=== PATIENT | female | born 1965 | race Caucasian/White ===

== ENCOUNTER → 2016-10-17 | Outpatient (CLI) | payer OTHER ==
--- NOTE | 2016-10-17 21:54 | MR ---
EXAMINATION TYPE: MR brain wo con DATE OF EXAM: 10/17/2016 COMPARISON: 01/20/2010 HISTORY: Edis weakness/numbness, seizures T1-weighted sagittal, T2, FLAIR, and diffusion axial, and T2 coronal coronal views of the brain are s ubmitted. There is no evidence of acute ischemia. The ventricles, basal cisterns, and sulci overlying the conv exities are consistent with the patient's age. There is no mass effect. Craniocervical junction maintained. Sella turcica has a normal appearance. No cerebellopontine angle mass. 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 Orally clinically for confirmation. Changes of chronic mild mastoiditis and sinusitis. WHITE MATTER: There are 4 lesions scattered throughout the white matter bilaterally which are stable in appearance. All measure less than 5 mm. No lesions perpendicular to the ventricular system. No callosal lesions. IMPRESSION: 1. No acute intracranial process. Minimal nonspecific white matter changes are stable. If symptoms pe rsist consider contrast-enhanced MRI. 2. 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 3. Mild bilateral mastoiditis and changes of chronic sinusitis.
== END | disposition home or self-care (01) ==
LOC: RADMRIMAIN 19:56
PROVIDERS: ATTEND Psychiatry & Neurology Pain Medicine
DX: H70.93 Unspecified mastoiditis, bilateral (principal); R56.9 Unspecified convulsions
CPT/HCPCS: 70551

== ENCOUNTER 2016-12-17 22:14 | Emergency (ER) | payer OTHER ==
[2016-12-17 22:32] VITALS: RESP 18
--- NOTE | 2016-12-17 22:41 | ED ---
General Adult HPI - General Chief complaint: Dental/Oral Stated complaint: jaw pain Time Seen by Provider: 12/17/16 22:33 Source: patient, RN notes reviewed Mode of arrival: ambulatory Limitations: no limitations - History of Present Illness Initial comments: 50-year-old female presents to the emergency room chief complaint of right- sided jaw pain. Patient has history of a jaw fracture 20 years ago. Patient states that she felt her jaw pop a few weeks ago and since she's had pain to it. She is concerned that she may have reinjured. Patient states her dentures have not been fitting as well as well. Patient denies any fever chills. Patient states she is able to open and close mouth. She denies any pain into the neck. Patient was concerned due to her discomfort so she thought that she should be seen.Patient denies any recent fever, chills, shortness of breath, chest pain, back pain, abdominal pain, nausea vomiting, numbness or tingling, dysuria or hematuria, constipation or diarrhea, headaches or visual changes, or any other current symptoms. - Related Data Previous Rx's Medication Instructions Recorded Hydrocodone/Acetaminophen [Victor 1 each PO Q6HR PRN #10 tab 12/17/16 5-325] Allergies Allergy/AdvReac Type Severity Reaction Status Date / Time sulfamethoxazole Allergy Unknown Verified 04/04/15 10:56 [From ] trimethoprim [From ] Allergy Unknown Verified 04/04/15 10:56 Review of Systems ROS Statement: Those systems with pertinent positive or pertinent negative responses have been documented in the HPI. ROS Other: All systems not noted in ROS Statement are negative. Past Medical History Past Medical History: Fibromyalgia, GERD/Reflux, GI Bleed Additional Past Medical History / Comment(s): deg disc disease, gastric ulcers History of Any Multi-Drug Resistant Organisms: None Reported Past Surgical History: Breast Surgery, Cholecystectomy, Hysterectomy Additional Past Surgical History / Comment(s): "gastric ulcer ruptured" Past Psychological History: Anxiety, Depression Smoking Status: Current every day smoker Past Alcohol Use History: None Reported Past Drug Use History: Marijuana General Exam Limitations: no limitations General appearance: alert, in no apparent distress Head exam: Present: atraumatic, normocephalic, normal inspection Eye exam: Present: normal appearance, PERRL, EOMI. Absent: scleral icterus, conjunctival injection, periorbital swelling ENT exam: Present: normal exam, normal oropharynx (no top teeth, no abscess, no tenderness), mucous membranes moist Respiratory exam: Present: normal lung sounds bilaterally. Absent: respiratory distress, wheezes, rales, rhonchi, stridor Cardiovascular Exam: Present: regular rate, normal rhythm, normal heart sounds. Absent: systolic murmur, diastolic murmur, rubs, gallop, clicks Neurological exam: Present: alert, oriented X3 Psychiatric exam: Present: normal affect, normal mood Skin exam: Present: warm, dry, intact, normal color. Absent: rash Course Vital Signs 12/17/16 22:29 Temperature 97.0 F L Pulse Rate 77 Respiratory 18 Rate Blood Pressure 122/75 O2 Sat by Pulse 97 Oximetry Medical Decision Making - Medical Decision Making 51-year-old female presents emergency Department chief complaint right-sided jaw pain. This time patient's x-rays reviewed and does not show any acute new fracture there is suspicion for subluxation patient does have full range of motion of the jaw at this time. We discussion stop the neurosurgeon for didn't show imaging on the jaw.. This time we did give her follow-up to oral surgery. We discussed return parameters all the questions. She stated that she understood and she is in agreement with this plan. At this time she'll be discharged home. - Radiology Data Radiology results: report reviewed, image reviewed Disposition Clinical Impression: Chronic jaw pain Disposition: HOME SELF-CARE Condition: Stable Instructions: Jaw Fracture in Adults (ED) Additional Instructions: Please use medication as discussed. Please follow up with family doctor if symptoms have not improved over the next two days. Please return to the emergency room if your symptoms increase or worsen or for any other concerns. Prescriptions: Hydrocodone/Acetaminophen [Victor 5-325] 1 each PO Q6HR PRN #10 tab PRN Reason: Pain Referrals: Radha Darden MD [Primary Care Provider] - 1-2 days Eliseo Galeana DDS [STAFF PHYSICIAN] - 1-2 days Time of Disposition: 23:49
--- NOTE | 2016-12-17 23:44 | XR ---
EXAM: XR Mandible Complete, 4 or More Views CLINICAL HISTORY: RT side jaw pain x2 months, worse today. Hx of old jaw fracture in 1996. TECHNIQUE: Frontal, oblique and lateral views of the mandible. COMPARISON: No relevant prior studies available. FINDINGS: Dental: No acute findings. Bones/joints: The right TMJ looks subluxed on the Ruth Ann view, limited evaluation, may be due to positioning or patient moving. Limited evaluation of the lateral views due to overlap. Soft tissues: Unremarkable. IMPRESSION: The right TMJ looks subluxed on the Ruth Ann view, limited evaluation, may be due to positioning or patient moving. Limited evaluation of the lateral views due to overlap. Consider CT or MRI, MRI most sensitive.
[2016-12-18 00:06] VITALS: BP 120/72; PULSE 75; TEMP 98
== END 2016-12-18 00:05 | disposition home or self-care (01) ==
LOC: EC 22:14
DX: R68.84 Jaw pain (principal); G89.29 Other chronic pain; F17.200 Nicotine dependence, unspecified, uncomplicated; Z88.1 Allergy status to other antibiotic agents; Z97.2 Presence of dental prosthetic device (complete) (partial)
CPT/HCPCS: 70110; 99283

== ENCOUNTER → 2018-01-06 | Outpatient (CLI) | payer OTHER ==
--- NOTE | 2018-01-08 10:09 | MM ---
Reason for exam: screening (asymptomatic). Last mammogram was performed 1 year and 11 months ago. History: Patient is postmenopausal and history of endometrial cancer. Retro-pectoral silicone gel implants in both breasts, 1988. Silicone gel implant in the left breast. Silicone gel implant in the right breast. Physical Findings: A clinical breast exam by your physician is recommended on an annual basis and results should be correlated with mammographic findings. MG 3D Screen Mammo Imp/Cad Bilateral CC, MLO, and ID view(s) were taken. Prior study comparison: January 31, 2016, bilateral MG 3d screen mammo imp/cad. There are scattered fibroglandular densities. There is chronic nodularity in the right breast. Bilateral retropectoral silicone implants. New nodularity approximately 10 o'clock left breast. ASSESSMENT: Incomplete: need additional imaging evaluation, BI-RAD 0 RECOMMENDATION: Special view mammogram and ultrasound of the left breast. [facility] will attempt to contact patient to return for supplemental views and ultrasound.
== END | disposition home or self-care (01) ==
LOC: RADMAMWWP 15:12
PROVIDERS: ATTEND Family Medicine
DX: Z12.31 Encounter for screening mammogram for malignant neoplasm of breast (principal)
CPT/HCPCS: 77063; 77067

== ENCOUNTER → 2018-01-21 | Outpatient (CLI) | payer OTHER ==
--- NOTE | 2018-01-22 13:14 | MM ---
Reason for exam: additional evaluation requested from abnormal screening. Last mammogram was performed less than 1 month ago. History: Patient is postmenopausal and history of endometrial cancer. Retro-pectoral silicone gel implants in both breasts, 1988. Silicone gel implant in the left breast. Silicone gel implant in the right breast. Physical Findings: Nurse did not find any significant physical abnormalities on exam. MG 3D Work Up W/Cad LT CC and MLO view(s) were taken of the left breast. Prior study comparison: January 06, 2018, bilateral MG 3d screen mammo imp/cad. January 31, 2016, bilateral MG 3d screen mammo imp/cad. There are scattered fibroglandular densities. Finding: There is a 0.6cm high density, irregular mass in the 12 o'clock position of the left breast. These results were verbally communicated with the patient and result sheet given to the patient on 01/21/18. ASSESSMENT: Suspicious, BI-RAD 4 RECOMMENDATION: Surgical consultation and stereotactic core biopsy of the left breast. Called Dr. Nixon with mammographic findings and has scheduled an appointment for the patient for 02/14/18 at 1:[address] Huff. PRELIMINARY REPORT CALLED AND FAXED TO DR. HUFF ON 01/22/18.
--- NOTE | 2018-01-22 13:15 | USB ---
Reason for exam: additional evaluation requested from abnormal screening. History: Patient is postmenopausal and history of endometrial cancer. Retro-pectoral silicone gel implants in both breasts, 1988. Silicone gel implant in the left breast. Silicone gel implant in the right breast. US Breast Workup Limited LT Left limited breast ultrasound including focal area of concern, retroareolar and axilla demonstrates a 2.7 x 1.7 x 2.7cm hypoechoic lesion at 10 o'clock. These results were verbally communicated with the patient and result sheet given to the patient on 01/21/18. ASSESSMENT: Incomplete: need additional imaging evaluation, BI-RAD 0 RECOMMENDATION: Special view mammogram of the left breast.
== END | disposition home or self-care (01) ==
LOC: RADMAMWWP 15:02
PROVIDERS: ATTEND Family Medicine
DX: R92.8 Other abnormal and inconclusive findings on diagnostic imaging of breast (principal); N63.20 Unspecified lump in the left breast, unspecified quadrant
CPT/HCPCS: 77065; 76642; G0279; 77061

== ENCOUNTER → 2018-02-14 | Outpatient (CLI) | payer OTHER ==
[2018-02-14 13:07] VITALS: BP 128/68; PULSE 93; RESP 18; TEMP 98.3; BMI 25.7
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
== END | disposition home or self-care (01) ==
LOC: WWCWWP 12:51
PROVIDERS: ATTEND Surgery
DX: Z53.9 Procedure and treatment not carried out, unspecified reason (principal)

== ENCOUNTER → 2018-03-13 | Day surgery (SDC) | payer OTHER ==
[2018-03-13 07:30] VITALS: RESP 16; TEMP 98.3; BMI 25.7
--- NOTE | 2018-03-13 08:30 | P.PN ---
Progress Note - Text Progress Note Date: 03/13/18 The patient was scheduled for a left breast stereotactic core biopsy. Upon trying to localize the lesion of concern we were unable to do so. The radiographs were reviewed with radiology who felt that this initial area of concern was stable and non-worrisome, it may be a summation density therefore, the procedure should be canceled and she should have a repeat left breast mammogram in 6 months time. She will have a repeat physician visit at that time as well. This was relayed to the patient. The procedure was canceled. And the patient is recommended to undergo a repeat left breast mammogram and physician exam in 6 months time. CC: Dr. Nixon ([place])
[2018-03-13 08:40] VITALS: BP 122/88; PULSE 62
--- NOTE | 2018-03-13 16:09 | MM ---
EXAMINATION TYPE: MG discontinued stereo core LT DATE OF EXAM: 03/13/2018 COMPARISON: Prior mammogram 01/21/2018, 01/06/2018 CLINICAL HISTORY: Abnormal mammogram The lesion seen on patient's mammogram from 01/21/2018 could not be localized under stereotactic unit. Exam is aborted. No stereotactic performed this time. Follow-up mammogram recommended in 6 months.
== END ==
LOC: RADMAMWWP 06:51
PROVIDERS: ATTEND Surgery
DX: R92.8 Other abnormal and inconclusive findings on diagnostic imaging of breast (principal); Z53.8 Procedure and treatment not carried out for other reasons; Z88.8 Allergy status to other drugs, medicaments and biological substances

== ENCOUNTER → 2018-09-10 | Outpatient (CLI) | payer OTHER ==
--- NOTE | 2018-09-10 10:10 | MM ---
Reason for exam: follow-up at short interval from prior study. Last mammogram was performed 8 months ago. History: Patient is postmenopausal and history of endometrial cancer. MG discontinued stereo core LT of the left breast, March 13, 2018. Retro-pectoral silicone gel implants in both breasts, 1988. Silicone gel implant in the left breast. Silicone gel implant in the right breast. Physical Findings: Nurse did not find any significant physical abnormalities on exam. MG 3D Diag Mammo Imp W/Cad LT CC, MLO, and ID view(s) were taken of the left breast. Prior study comparison: January 21, 2018, left breast MG 3d work up w/cad LT. January 06, 2018, bilateral MG 3d screen mammo imp/cad. The breast tissue is heterogeneously dense. This may lower the sensitivity of mammography. Implant intact. Nodule is less conspicuous. These results were verbally communicated with the patient and result sheet given to the patient on 09/10/18. ASSESSMENT: Probably benign, BI-RAD 3 RECOMMENDATION: Follow-up diagnostic mammogram of both breasts in 6 months. Back on schedule for December 2018.
== END | disposition home or self-care (01) ==
LOC: RADMAMWWP 09:11
PROVIDERS: ATTEND Surgery
DX: R92.8 Other abnormal and inconclusive findings on diagnostic imaging of breast (principal)
CPT/HCPCS: 77065; G0279; 77061

== ENCOUNTER 2019-05-08 12:30 | Emergency (ER) | payer OTHER ==
[2019-05-08 13:01] VITALS: RESP 18; TEMP 98.8
--- NOTE | 2019-05-08 13:45 | ED ---
Abdominal Pain HPI - General Chief Complaint: Abdominal Pain Stated Complaint: Poss appendicitis Time Seen by Provider: 05/08/19 13:43 Source: patient Mode of arrival: ambulatory Limitations: no limitations - History of Present Illness Initial Comments: 54yo female presenting today for chief complaint of one month of right lower quadrant pain 3 days of diarrhea. Patient states she has had diarrhea for the past 2 days she states she's been dealing with right lower quadrant abdominal pain on and off for the past month. Patient states which her primary care provider for evaluation where she had labs obtained outpatient. She states with her to review the labs today and was told to come to emergency department for CT the abdomen and pelvis to rule out appendicitis. Patient denies any pelvic pain and vaginal discharge or vaginal bleeding. Patient denies any upper abdominal pain chest pain or shortness of breath. Patient admits to some nausea. Denies vomiting. Patient denies fever chills or flulike symptoms remaining review of systems negative upon arrival patient appears well no signs acute distress resting comfortably upon entering the room for history taking - Related Data Home Medications Medication Instructions Recorded Confirmed ARIPiprazole [Abilify] 20 mg PO DAILY 01/30/18 03/13/18 Dextroamphetamine/Amphetamine 1 tab PO BID 01/30/18 03/13/18 [Adderall] Escitalopram [Lexapro] 30 tab PO DAILY 01/30/18 03/13/18 Oxybutynin Chloride 5 mg PO BID 03/05/18 03/13/18 Varenicline [Chantix Starter Pack] 0.5 mg PO DAILY 03/13/18 03/13/18 Allergies Allergy/AdvReac Type Severity Reaction Status Date / Time sulfamethoxazole Allergy Unknown Verified 05/08/19 13:02 [From ] trimethoprim [From ] Allergy Unknown Verified 05/08/19 13:02 Review of Systems ROS Statement: Those systems with pertinent positive or pertinent negative responses have been documented in the HPI. ROS Other: All systems not noted in ROS Statement are negative. Past Medical History Past Medical History: Cancer, Fibromyalgia, GERD/Reflux, GI Bleed Additional Past Medical History / Comment(s): cervical cancer 1990. degene rative disc disease. gastric ulcers History of Any Multi-Drug Resistant Organisms: None Reported Past Surgical History: Breast Surgery, Cholecystectomy, Hysterectomy Additional Past Surgical History / Comment(s): breast implants-1988. gastric surgery due to rupture Past Anesthesia/Blood Transfusion Reactions: No Reported Reaction Past Psychological History: Anxiety, Bipolar, Depression Smoking Status: Former smoker Past Alcohol Use History: Occasional Past Drug Use History: Marijuana - Past Family History Mother Family Medical History: Cancer Father Family Medical History: Cancer General Exam - General Exam Comments Initial Comments: General: The patient is awake and alert, in no distress, and does not appear acutely ill. Eye: +3 mm pupils are equal, round and reactive to light, extra-ocular movements are intact. No nystagmus. There is normal conjunctiva bilaterally. No signs of icterus. Ears, nose, mouth and throat: There are moist mucous membranes and no oral lesions. Neck: The neck is supple, there is no tenderness or JVD. Cardiovascular: There is a regular rate and rhythm. No murmur, rub or gallop is appreciated. Respiratory: Lungs are clear to auscultation, respirations are non-labored, breath sounds are equal. No wheezes, stridor, rales, or rhonchi. Gastrointestinal: Soft, non-distended, abdomen tender to palpation of the right lower quadrant but is without masses or organomegaly noted. There is no rebound or guarding present. Musculoskeletal: Normal ROM, no tenderness. Strength 5/5. Sensation intact. Radial pulses equal bilaterally 2+. Neurological: A&O x 3. CN II-XII intact grossly, There are no obvious motor or sensory deficits. Coordination appears grossly intact. Speech is normal. Skin: Skin is warm and dry and no rashes or lesions are noted. Psychiatric: Cooperative, appropriate mood & affect, normal judgment. Limitations: no limitations Course Vital Signs 05/08/19 05/08/19 12:59 16:31 Temperature 98.8 F 98.8 F Pulse Rate 93 88 Respiratory 18 18 Rate Blood Pressure 151/75 120/80 O2 Sat by Pulse 98 98 Oximetry Medical Decision Making - Medical Decision Making 54-year-old female presenting today for chief complaint of sent by primary care provider to rule out appendicitis patient has had right lower quadrant pain on and off for the past month diarrhea [address] of the abdomen and pelvis reveals findings consistent with enterocolitis. This clinically correlates the patient's history of diarrhea. Patient does not appear in acute distress she is resting comfortably. I discussed labs and findings as well a PE with my attending who is agreeable to discharge with outpatient PCP f/u. Patient is agreeable, states symptoms are controlled patient discharged appearing well. - Lab Data Result diagrams: 05/08/19 13:50 05/08/19 13:50 Lab Results 05/08/19 05/08/19 05/08/19 Range/Units 13:50 13:50 13:50 WBC 13.2 H (3.8-10.6) k/uL RBC 4.46 (3.80-5.40) m/uL Hgb 13.0 (11.4-16.0) gm/dL Hct 40.4 (34.0-46.0) % MCV 90.6 (80.0-100.0) fL MCH 29.1 (25.0-35.0) pg MCHC 32.1 (31.0-37.0) g/dL RDW 13.6 (11.5-15.5) % Plt Count 474 H (150-450) k/uL Neutrophils % 59 % Lymphocytes % 30 % Monocytes % 5 % Eosinophils % 1 % Basophils % 2 % Neutrophils # 7.9 H (1.3-7.7) k/uL Lymphocytes # 4.0 (1.0-4.8) k/uL Monocytes # 0.7 (0-1.0) k/uL Eosinophils # 0.2 (0-0.7) k/uL Basophils # 0.2 (0-0.2) k/uL Sodium 141 (137-145) mmol/L Potassium 3.5 (3.5-5.1) mmol/L Chloride 104 (98-107) mmol/L Carbon Dioxide 26 (22-30) mmol/L Anion Gap 11 mmol/L BUN 14 (7-17) mg/dL Creatinine 0.73 (0.52-1.04) mg/dL Est GFR (CKD-EPI)AfAm >90 (>60 ml/min/1.73 sqM) Est GFR (CKD-EPI)NonAf >90 (>60 ml/min/1.73 sqM) Glucose 101 H (74-99) mg/dL Plasma Lactic Acid Luther 1.6 (0.7-2.0) mmol/L Calcium 9.6 (8.4-10.2) mg/dL Total Bilirubin 0.3 (0.2-1.3) mg/dL AST 21 (14-36) U/L ALT 26 (4-34) U/L Alkaline Phosphatase 66 (38-126) U/L Total Protein 7.3 (6.3-8.2) g/dL Albumin 4.6 (3.5-5.0) g/dL Amylase 42 (30-110) U/L Lipase 134 (23-300) U/L Urine Color Urine Appearance (Clear) Urine pH (5.0-8.0) Ur Specific [place] (1.001-1.035) Urine Protein (Negative) Urine Glucose (UA) (Negative) Urine Ketones (Negative) Urine Blood (Negative) Urine Nitrite (Negative) Urine Bilirubin (Negative) Urine Urobilinogen (<2.0) mg/dL Ur Leukocyte Esterase (Negative) Urine RBC (0-5) /hpf Urine WBC (0-5) /hpf Ur Squamous Epith Cells (0-4) /hpf Urine Mucus (None) /hpf 05/08/19 Range/Units 13:50 WBC (3.8-10.6) k/uL RBC (3.80-5.40) m/uL Hgb (11.4-16.0) gm/dL Hct (34.0-46.0) % MCV (80.0-100.0) fL MCH (25.0-35.0) pg MCHC (31.0-37.0) g/dL RDW (11.5-15.5) % Plt Count (150-450) k/uL Neutrophils % % Lymphocytes % % Monocytes % % Eosinophils % % Basophils % % Neutrophils # (1.3-7.7) k/uL Lymphocytes # (1.0-4.8) k/uL Monocytes # (0-1.0) k/uL Eosinophils # (0-0.7) k/uL Basophils # (0-0.2) k/uL Sodium (137-145) mmol/L Potassium (3.5-5.1) mmol/L Chloride (98-107) mmol/L Carbon Dioxide (22-30) mmol/L Anion Gap mmol/L BUN (7-17) mg/dL Creatinine (0.52-1.04) mg/dL Est GFR (CKD-EPI)AfAm (>60 ml/min/1.73 sqM) Est GFR (CKD-EPI)NonAf (>60 ml/min/1.73 sqM) Glucose (74-99) mg/dL Plasma Lactic Acid Luther (0.7-2.0) mmol/L Calcium (8.4-10.2) mg/dL Total Bilirubin (0.2-1.3) mg/dL AST (14-36) U/L ALT (4-34) U/L Alkaline Phosphatase (38-126) U/L Total Protein (6.3-8.2) g/dL Albumin (3.5-5.0) g/dL Amylase (30-110) U/L Lipase (23-300) U/L Urine Color Light Yellow Urine Appearance Clear (Clear) Urine pH 5.5 (5.0-8.0) Ur Specific [place] 1.005 (1.001-1.035) Urine Protein Negative (Negative) Urine Glucose (UA) Negative (Negative) Urine Ketones Negative (Negative) Urine Blood Small H (Negative) Urine Nitrite Negative (Negative) Urine Bilirubin Negative (Negative) Urine Urobilinogen <2.0 (<2.0) mg/dL Ur Leukocyte Esterase Moderate H (Negative) Urine RBC 3 (0-5) /hpf Urine WBC 2 (0-5) /hpf Ur Squamous Epith Cells <1 (0-4) /hpf Urine Mucus Rare H (None) /hpf Disposition Clinical Impression: Abdominal pain, Diarrhea Disposition: HOME SELF-CARE Condition: Good Instructions (If sedation given, give patient instructions): Abdominal Pain (ED) Additional Instructions: Please use medication as discussed. Please follow-up with family doctor in the next 2 days. Please return to emergency room if the symptoms increase or worsen or for any other concerns. Is patient prescribed a controlled substance at d/c from ED?: No Referrals: Rodríguez King MD [Primary Care Provider] - 1-2 days Time of Disposition: 16:08
[2019-05-08 14:10] LABS: Basophils # (A) 0.2 k/uL (0-0.2); Basophils % (A) 2 %; Eosinophils # (A) 0.2 k/uL (0-0.7); Eosinophils % (A) 1 %; HCT 40.4 % (34.0-46.0); Lymphocytes % (A) 30 %; MCH 29.1 pg (25.0-35.0); MCHC 32.1 g/dL (31.0-37.0); MCV 90.6 fL (80.0-100.0); Mean Platelet Volume 6.9; Monocytes # (A) 0.7 k/uL (0-1.0); Monocytes % (A) 5 %; Neutrophils # (A) 7.9 k/uL (1.3-7.7); Neutrophils % (A) 59 %; Platelet Count 474 k/uL (150-450); RBC 4.46 m/uL (3.80-5.40); RDW 13.6 % (11.5-15.5); WBC 13.2 k/uL (3.8-10.6)
[2019-05-08 14:14] LABS: Appearance,Urine Clear (Clear); Bilirubin,Urine Negative (Negative); Blood,Urine Small (Negative); Color,Urine Light Yellow; Glucose,Urine (UA) Negative (Negative); Ketones,Urine Negative (Negative); Leukocyte Esterase,Urine Moderate (Negative); Mucus,Urine Rare /hpf; Nitrite,Urine Negative (Negative); PH, Urine 5.5 (5.0-8.0); Protein,Urine Negative (Negative); RBC,Urine 3 /hpf (0-5); Specific Gravity,Urine 1.005 (1.001-1.035); Squamous Epithelial Cell,Urine <1 /hpf (0-4); Urobilinogen,Urine <2.0 mg/dL (<2.0); WBC,Urine 2 /hpf (0-5)
[2019-05-08 14:20] LABS: ALT 26 U/L (4-34); AST 21 U/L (14-36); African American GFR (CKD) >90 (>60 ml/min/1.73 sqM); Albumin 4.6 g/dL (3.5-5.0); Alkaline Phosphatase 66 U/L (38-126); Amylase 42 U/L (30-110); Anion Gap 11 mmol/L; Blood Urea Nitrogen 14 mg/dL (7-17); Calcium 9.6 mg/dL (8.4-10.2); Carbon Dioxide 26 mmol/L (22-30); Chloride 104 mmol/L (98-107); Glucose 101 mg/dL (74-99); Non-African American GFR(CKD) >90 (>60 ml/min/1.73 sqM); Potassium 3.5 mmol/L (3.5-5.1); Sodium 141 mmol/L (137-145); Total Bilirubin 0.3 mg/dL (0.2-1.3); Total Protein 7.3 g/dL (6.3-8.2)
--- NOTE | 2019-05-08 15:34 | CT ---
EXAMINATION TYPE: CT abdomen pelvis w con DATE OF EXAM: 05/08/2019 COMPARISON: 04/04/2015 HISTORY: Abdominal pain x1 month. [place] most in RT side. CT DLP: 705.9 mGycm CONTRAST: CT scan of the abdomen and pelvis is performed without Oral Contrast and with IV Contrast, patient in jected with 100 mL of Isovue 300. FINDINGS: LUNG BASES-: No visible nodule. No infiltrate. LIVER/GB: The gallbladder is surgically absent. No space occupying hepatic lesion. Biliary tree is of normal caliber. PANCREAS: No inflammation. No distinct mass. SPLEEN: No splenic enlargement. No lesion seen. ADRENALS: No nodule. No thickening. KIDNEYS/BLADDER: No hydronephrosis. No nephrolithiasis. No distinct renal mass. Urinary bladder g rossly unremarkable. BOWEL: Normal appendix. Jejunal loops are mildly distended with wall thickening which may reflect ent eritis. Distal small bowel loops and colon appear to be of normal caliber. GENITAL ORGANS: Hysterectomy changes noted. LYMPH NODES: No greater than 1cm abdominal or pelvic lymph nodes are appreciated. AORTA: No significant abnormality. OSSEOUS STRUCTURES: No significant abnormality is seen. OTHER: No significant additional abnormality is seen. IMPRESSION: 1. Correlate for small bowel enteritis.
[2019-05-08 16:33] VITALS: BP 120/80; PULSE 88
== END 2019-05-08 16:31 | disposition home or self-care (01) ==
LOC: EC 12:30
DX: R10.31 Right lower quadrant pain (principal); R19.7 Diarrhea, unspecified; F41.9 Anxiety disorder, unspecified; F31.9 Bipolar disorder, unspecified; Z79.899 Other long term (current) drug therapy; Z88.1 Allergy status to other antibiotic agents; Z88.2 Allergy status to sulfonamides; Z87.891 Personal history of nicotine dependence; Z90.49 Acquired absence of other specified parts of digestive tract; Z90.710 Acquired absence of both cervix and uterus; Z85.41 Personal history of malignant neoplasm of cervix uteri
CPT/HCPCS: 36415; 80053; 82150; 83605; 83690; 85025; 81001; 74177; 99284; Q9967

== ENCOUNTER → 2019-07-15 | Outpatient (CLI) | payer OTHER ==
--- NOTE | 2019-07-15 08:11 | MM ---
Reason for exam: additional evaluation requested from prior study. Last mammogram was performed 10 months ago. History: Patient is postmenopausal and history of endometrial cancer. Family history of breast cancer in maternal aunt at age 50 and breast cancer in maternal cousin at age 40. MG discontinued stereo core LT of the left breast, March 13, 2018. Retro-pectoral silicone gel implants in both breasts, 1988. Silicone gel implant in the left breast. Silicone gel implant in the right breast. Physical Findings: Nurse did not find any significant physical abnormalities on exam. MG 3D Diag Mammo Imp W/Cad JENNIFER Bilateral CC, MLO, and ID view(s) were taken. Prior study comparison: September 10, 2018, left breast MG 3d diag mammo imp w/cad LT. January 21, 2018, left breast MG 3d work up w/cad LT. There are scattered fibroglandular densities. Medial asymmetry on the right is stable back to 2016. Bilateral retropectoral silicone implants. Contour defects of the bilateral implants with calcifications on the left. These results were verbally communicated with the patient and result sheet given to the patient on 07/15/19. ASSESSMENT: Benign, BI-RAD 2 RECOMMENDATION: Follow-up diagnostic mammogram of both breasts in 1 year. MRI could be considered for implant integrity.
== END | disposition home or self-care (01) ==
LOC: RADMAMWWP 07:03
PROVIDERS: ATTEND Obstetrics & Gynecology
DX: R92.8 Other abnormal and inconclusive findings on diagnostic imaging of breast (principal)
CPT/HCPCS: 77066; G0279; 77062

== ENCOUNTER → 2020-03-17 | Outpatient (CLI) | payer OTHER | END | disposition home or self-care (01) | LOC: RADMRIMAIN 08:45 | PROVIDERS: ATTEND Nurse Practitioner Adult Health | DX: Z53.9 Procedure and treatment not carried out, unspecified reason (principal) ==

== ENCOUNTER → 2024-08-07 | Outpatient (CLI) | payer MEDICARE, OTHER ==
--- NOTE | 2024-08-07 14:31 | CT ---
EXAMINATION TYPE: CT lumbar spine w con DATE OF EXAM: 08/07/2024 2:13 PM COMPARISON: 05/08/2019. CLINICAL INDICATION: Female, 59 years old with history of M54.50 LOW BACK PAIN; PHH, back pain TECHNIQUE: Multiple axial images were obtained from the midportion of T11 through the sacroiliac sis nts. Soft tissue and bone windows in coronal and sagittal planes were obtained and reviewed. 3-D ref ormats of the bones were created on a separate workstation and submitted for review. Contrast used:100ml mL of Isovue 300 with IV Contrast, (None, if empty). Oral contrast used: (None, if empty). CT DLP: 876 mGycm, Automated exposure control for dose reduction was used. FINDINGS: Alignment: There are 5 lumbar type vertebral bodies within normal alignment. Bone: No evidence of fracture is identified. Multilevel degeneration changes with osteophyte formati on, disc space narrowing, facet joint arthropathy. Discs: T12-L1: No spinal canal or neural foraminal stenosis is identified. L1-L2: No spinal canal or neural foraminal stenosis is identified. L2-L3: Facet joint arthropathy and disc bulging result in mild spinal canal stenosis and mild bilater al neural foraminal stenosis. L3-L4: Facet joint arthropathy and disc bulging result in mild spinal canal stenosis and mild bilater al neural foraminal stenosis. L4-L5: Facet joint arthropathy and disc bulging result in mild spinal canal stenosis and mild bilater al neural foraminal stenosis. L5-S1: Facet joint arthropathy and disc bulging result in mild spinal canal stenosis and mild bilater al neural foraminal stenosis. Other: The gallbladder surgically absent. Mild right hydroureteronephrosis. No left hydronephrosis. A rthrosis course of the arterial vasculature. Physiologic dilation of the biliary system which can be seen in post cholecystectomy physiology. Arthrosis course of the arterial vasculature. IMPRESSION: 1. No evidence for spinal fracture. 2. Mild degeneration changes spine No evidence for significant spinal canal neural foraminal stenosi s. 3. Mild right hydroureteronephrosis similar dating back to at least 2018. [facility], , 08/07/2024 2:28 PM
== END | disposition home or self-care (01) ==
LOC: RADCTMAIN 13:33
PROVIDERS: ATTEND Orthopaedic Surgery Orthopaedic Surgery of the Spine
DX: M48.061 Spinal stenosis, lumbar region without neurogenic claudication (principal); M47.816 Spondylosis without myelopathy or radiculopathy, lumbar region; N13.39 Other hydronephrosis
CPT/HCPCS: 72132; Q9967